=== PATIENT | female | born 1960 | race Caucasian/White ===

== ENCOUNTER 2024-08-05 15:17 | Outpatient (AMB) | payer MEDICARE, OTHER, SELFPAY ==
--- NOTE | 2024-08-05 15:36 | MHC.PC.OV ---
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: No Allergies No Known Allergies Allergy (Verified 08/05/24 15:47) Medication List - Last Reconciled 08/06/24 by Marce Harden MD amlodipine 5 mg PO DAILY atorvastatin 10 mg PO BEDTIME Zepbound (tirzepatide (weight loss)) 2.5 mg (0.5 mL) subcut QWEEK NS Tobacco use date assessed: 08/05/24 Fall risk assessment: No Falls in past year Last assessed Fall Risk: 08/05/24 Dental Screening Dental Screen Date: 08/05/24 Did you have a dental visit in the last 12 months?: Yes Did you have a dental problem in the last 6 months where you did not have access to dental care?: No Was dental information given to patient?: Patient has dentist HPI HPI Comments History of Present Illness Details 64 year old female with a past medical history of hypertension, hyperlipidemia, bilateral foot pain presenting to critical access hospital care. Transfer from [facility] CV: On amlodipine 5mg daily, atorvastatin. Denies chest pain Bilateral foot pain-long standing history of arch problems, foot pain. Follows with Dr Irene. In the past year or two has developed worsening knee pain and low back pain which she attributes to the chronic foot pain issues and recent weight gain. Says this is the highest she has ever weight. She continues to exercise and eats a decreased calorie low sugar diet. Despite this she has been unsuccesful with weight loss. Preventive Mammo: UTD Colon Cancer screening: Due Mar 2025 for repeat colonoscopy No longer routinely following with gynecology ROS see HPI PHYSICAL EXAM: GENERAL: Alert and oriented x 3. NAD EYES: EOMI. Anicteric. HENT: Moist mucous membranes. No scleral icterus. No cervical lymphadenopathy. LUNGS: Clear to auscultation bilaterally. CARDIOVASCULAR: Regular rate and rhythm. No murmur. No JVD. ABDOMEN: Soft, non-tender +bs EXTREMITIES: No edema. Non-tender. SKIN: No rashes or lesions. Warm. NEUROLOGIC: No focal neurological deficits. CN II-XII grossly intact PSYCHIATRIC: Cooperative. Appropriate mood and affect [facility] Surgical History No pertinent past surgical history Family History Father Heart disease Lung cancer Brother Diabetes Sister Breast cancer Other Lymphoma Social History Housing: House Alcohol intake: current Patient Tobacco Use Status: Former Tobacco user Cigarette Packs Per Day: 0.5 Years Smoked: 20 e-Cigarette/Vaping Use: Never Used Second Hand Smoke Exposure: No service: Yes Current occupational status: employed and retired Cognitive needs: No Hearing needs: No Vision needs: No Questionnaire PHQ-9 Over the last 2 weeks, how often have you been bothered by any of the following problems? 1. Little interest or pleasure in doing things: not at all 2. Feeling down, depressed, or hopeless: not at all 3. Trouble falling or staying asleep, or sleeping too much: not at all 4. Feeling tired or having little energy: not at all 5. Poor appetite or overeating: several days 6. Feeling bad about yourself - or that you are a failure or have let yourself or your family down: not at all 7. Trouble concentrating on things, such as reading the newspaper or watching television: several days 8. Moving or speaking so slowly that other people could have noticed. Or the opposite - being so fidgety or restless that you have been moving around a lot more than usual: not at all 9. Thoughts that you would be better off or of hurting yourself in some way: not at all Total score: 2 Depression Screening Interpretation: Negative Depression Screening Done: Yes 15064 - PHQ-9 Billing: Yes Source: Developed by Drs. Andrey Larson, Gege Shin, John Horn and colleagues, with an educational alysia from [employer]. Thrive Questionnaire I am a: Patient What is your living situation today?: I have a steady place to live Within the past 12 months, did the food you bought not last and you didn't have the money to get more?: Never true Within the past 12 months, did you worry whether your food would run out before you got money to buy more?: Never true Do you have trouble paying for medicines?: No Do you have trouble getting transportation to medical appointments?: No Do you have trouble paying your heating and electricity bill?: No Do you have trouble taking care of your child, family member or friend?: No Do you have trouble with day-to-day activities such as bathing, preparing meals, shopping, managing finances, etc.?: No Are you currently unemployed and looking for a job?: No Are you interested in more education?: No Please select the resources that you would like help with: Education Currently or been in a relationship where the following occur: No concerns reported THRIVE Score: 0 AUDIT C Alcohol Use Questionnaire (AUDIT-C) 1. How often do you have a drink containing alcohol?: Never Total Score: 0 CLARKE-7 AMB Questionnaire CLARKE-7 Feeling nervous, anxious, or on edge: 0 = Not at all Not being able to stop or control worryin = Not at all Worrying too much about different things: 0 = Not at all Trouble relaxin = Several days Being so restless that it is hard to sit still: 0 = Not at all Becoming easily annoyed or irritable: 0 = Not at all Feeling afraid as if something awful might happen: 0 = Not at all Total CLARKE-7 score (0-4 normal; 5-9 mild; 10-14 moderate; 15-21 severe): 1 Source: Developed by Drs. Andrey Larson, Gege Shin, John Horn and colleagues, with an educational alysia from [employer]. Physical exam (Primary Care) Vital Signs: Last Vital Signs Pulse 86 08/05/24 15:54 Resp 14 08/05/24 15:54 BP 98/66 08/05/24 15:54 Pulse Ox 97 08/05/24 15:54 Oxygen Delivery Method Room Air 08/05/24 15:54 BMI result Body Mass Index 30.1 Tobacco/Smoking Status: Tobacco use Status Tobacco use date assessed 08/05/24 08/05/24 15:54 Patient Tobacco Use Status Former Tobacco user 08/05/24 15:54 e-Cigarette/Vaping Use Never Used 04/07/25 15:54 PHQ-9: PHQ-9 Score PHQ-9: Total score 2 08/05/24 15:54 Depression Screening Interpretation: Negative Currently or been in a relationship where the following occur: No concerns reported Coding Level of Care Code New Pt Level 4 (33466) Complex EM visit Add On G2211 Diagnoses Encounter to establish care Z76.89 Primary hypertension I10 Hypertension type: primary hypertension Hyperlipidemia, unspecified hyperlipidemia type E78.5 Hyperlipidemia type: unspecified Obesity (BMI 30.0-34.9) E66.811 Additional Codes PHQ-9 - 53335 - PHQ-9 Billing: Yes ([id number]) Assessment & Plan Assessment & Plan (1) Encounter to establish care: Code(s): Z76.89 - Persons encountering health services in other specified circumstances Category: Medical (2) Hypertension: Code(s): I10 - Essential (primary) hypertension Category: Medical Qualifiers: Hypertension type: primary hypertension Qualified Code(s): I10 - Essential (primary) hypertension (3) Hyperlipidemia: Code(s): E78.5 - Hyperlipidemia, unspecified Category: Medical Qualifiers: Hyperlipidemia type: unspecified Qualified Code(s): E78.5 - Hyperlipidemia, unspecified (4) Obesity (BMI 30.0-34.9): Code(s): E66.811 - Obesity, class 1 Category: Medical Plan 64 y/o to establish care. Past medical surgical, social and family history reviewed HTN-adequately controlled Needs updated lipids Start zepbound 2/2 failed lifestyle changes, htn, hld and increased joint pain Orders: Orders MM screening mammo BI 08/05/24 Z12.31 - Encounter for screening mammogram for malignant neoplasm of breast Complete Blood Count Auto Diff Today E78.5 - Hyperlipidemia, unspecified, I10 - Essential (primary) hypertension, R63.5 - Abnormal weight gain, Z13.228 - Encounter for screening for other metabolic disorders Comprehensive Met. Panel Today E78.5 - Hyperlipidemia, unspecified, I10 - Essential (primary) hypertension, R63.5 - Abnormal weight gain, Z13.228 - Encounter for screening for other metabolic disorders Lipid Panel Today E78.5 - Hyperlipidemia, unspecified, I10 - Essential (primary) hypertension, R63.5 - Abnormal weight gain, Z13.228 - Encounter for screening for other metabolic disorders Hemoglobin A1c Today E78.5 - Hyperlipidemia, unspecified, I10 - Essential (primary) hypertension, R63.5 - Abnormal weight gain, Z13.228 - Encounter for screening for other metabolic disorders TSH reflex Free T4 Today E78.5 - Hyperlipidemia, unspecified, I10 - Essential (primary) hypertension, R63.5 - Abnormal weight gain, Z13.228 - Encounter for screening for other metabolic disorders Medications: New Zepbound (tirzepatide (weight loss)) for 4 weeks 2.5 mg (0.5 mL) subcut QWEEK 2 mL 0RF NS E66.811 - Obesity, class 1, E78.5 - Hyperlipidemia, unspecified, I10 - Essential (primary) hypertension
[2024-08-05 15:54] VITALS: BP 98/66; PULSE 86; RESP 14; O2SAT 97; BMI 30.1
== END 2024-08-05 16:27 | disposition home or self-care (01) ==
LOC: HO.HMCFM 15:18
PROVIDERS: PCP Internal Medicine; Visit Provider Internal Medicine
DX: I10 Essential (primary) hypertension (principal); E78.5 Hyperlipidemia, unspecified; E66.811 Obesity, class 1; Z68.30 Body mass index [BMI] 30.0-30.9, adult; Z76.89 Persons encountering health services in other specified circumstances

== ENCOUNTER → 2024-08-05 15:17 | Outpatient (BNVA) | payer MEDICARE, OTHER, SELFPAY | PROVIDERS: PCP Internal Medicine; Visit Provider Internal Medicine | DX: I10 Essential (primary) hypertension (principal); E78.5 Hyperlipidemia, unspecified; M79.672 Pain in left foot; M79.671 Pain in right foot; E66.811 Obesity, class 1; Z13.228 Encounter for screening for other metabolic disorders; Z68.30 Body mass index [BMI] 30.0-30.9, adult; Z76.89 Persons encountering health services in other specified circumstances | CPT/HCPCS: 96127; 99202 ==

== ENCOUNTER 2024-08-06 11:36 | Outpatient (REF) | payer MEDICARE, OTHER, SELFPAY ==
[2024-08-06 14:07] LABS: MANUAL DIFF FLAG NO
[2024-08-06 14:15] LABS: Basophils Percent Auto 0.6 % (0-2); Eosinophils Absolute Auto 0.1 X10*3/uL (0.0-0.4); Eosinophils Percent Auto 1.7 % (0-4); Hematocrit 42.4 % (37.0-47.0); Hemoglobin 14.4 g/dl (12.0-16.0); Imm Gran Abs Auto 0.01 X10*3/uL (0.00-0.03); Imm Gran Pct Auto 0.1 % (0.0-0.4); Lymphocytes Absolute Auto 3.4 X10*3/uL (1.2-4.9); Lymphocytes Percent Auto 48.1 % (20-40); Mean Corpuscular Hemoglobin 31.7 pg (27.0-33.0); Mean Corpuscular Volume 93.4 fL (80.0-98.0); Mean Platelet Volume 10.7 fL (9.4-12.3); Monocytes Absolute Auto 0.4 X10*3/uL (0.1-1.2); Monocytes Percent Auto 5.6 % (2-11); Neutrophils Absolute Auto 3.1 x10*3/uL (2.0-8.3); Neutrophils Percent Auto 43.9 % (45-73); Platelet Count 277 X10*3/uL (160-400); Red Blood Count 4.54 X10*6/uL (4.20-5.50); Red Cell Distribution Width 13.2 % (11.0-16.0); White Blood Count 7.1 X10*3/uL (4.8-10.8)
[2024-08-06 14:31] LABS: Estimated Average Glucose 108 mg/dL; Hemoglobin A1C 133.2051 umol/L; Hemoglobin A1c % 5.4 % (<6.0); Total Hemoglobin (HGBA1C) 3762.3384 umol/L
[2024-08-06 16:45] LABS: Alanine Aminotransferase 41 U/L (0-31); Albumin Level 4.1 g/dL (3.5-5.0); Alkaline Phosphatase 87 U/L (39-117); Anion Gap 8 (12-20); Aspartate Amino Transferase 33 U/L (5-31); Bilirubin Total 0.4 mg/dL (0.0-1.0); Blood Urea Nitrogen 14 mg/dL (9-16); Calcium 9.4 mg/dL (8.4-10.2); Carbon Dioxide 24 mmol/L (22-29); Chloride 113 mmol/L (96-108); Cholesterol 144 mg/dL (<200); Estimated Glomerular Filt Rate > 60; Glucose Random 94 mg/dL (60-115); HDL Cholesterol 57 mg/dL (>40); LDL Cholesterol Calculated 61 mg/dL (<100); Potassium 3.9 mmol/L (3.3-5.1); Sodium 141 mmol/L (135-145); Total Protein 7.1 g/dL (6.5-8.0); Triglycerides 134 mg/dL (<150)
[2024-08-06 17:04] LABS: TSH reflex Free T4 1.76 uIU/mL (0.32-4.0)
== END 2024-08-06 11:37 | disposition home or self-care (01) ==
LOC: HO.WFDLDS 11:36
PROVIDERS: Visit Provider Internal Medicine
DX: R63.5 Abnormal weight gain (principal); I10 Essential (primary) hypertension; E78.5 Hyperlipidemia, unspecified; Z13.228 Encounter for screening for other metabolic disorders; Z13.1 Encounter for screening for diabetes mellitus
CPT/HCPCS: 36415; 80053; 80061; 83036; 84443; 85025

== ENCOUNTER 2024-09-25 13:27 | Outpatient (REF) | payer OTHER, SELFPAY ==
[2024-09-25 17:34] LABS: MANUAL DIFF FLAG NO
[2024-09-25 18:05] LABS: Basophils Absolute Auto 0.1 X10*3/uL (0.0-0.2); Basophils Percent Auto 0.7 % (0-2); Eosinophils Absolute Auto 0.1 X10*3/uL (0.0-0.4); Eosinophils Percent Auto 1.6 % (0-4); Hematocrit 42.9 % (37.0-47.0); Hemoglobin 14.5 g/dl (12.0-16.0); Imm Gran Abs Auto 0.02 X10*3/uL (0.00-0.03); Imm Gran Pct Auto 0.3 % (0.0-0.4); Lymphocytes Absolute Auto 3.3 X10*3/uL (1.2-4.9); Lymphocytes Percent Auto 43.6 % (20-40); Mean Corpuscular HGB Conc 33.8 g/dl (31.0-35.0); Mean Corpuscular Hemoglobin 32.2 pg (27.0-33.0); Mean Corpuscular Volume 95.3 fL (80.0-98.0); Monocytes Absolute Auto 0.4 X10*3/uL (0.1-1.2); Monocytes Percent Auto 4.8 % (2-11); Neutrophils Absolute Auto 3.7 x10*3/uL (2.0-8.3); Platelet Count 272 X10*3/uL (160-400); White Blood Count 7.5 X10*3/uL (4.8-10.8)
== END 2024-09-25 13:28 | disposition home or self-care (01) ==
LOC: HO.WFDLDS 13:27
PROVIDERS: Visit Provider Internal Medicine
DX: D72.820 Lymphocytosis (symptomatic) (principal)
CPT/HCPCS: 85025

== ENCOUNTER 2025-02-17 15:09 | Outpatient (AMB) | payer OTHER, SELFPAY ==
--- NOTE | 2025-02-17 15:22 | MHC.PC.OV ---
Vital Signs 02/17/25 15:31 Height 5 ft 6.26 in Weight 189 lb 4 oz BMI 30.3 BP 130/68 Blood Pressure Location Rt brachial Position Sitting Respiration 18 Pulse 76 Pulse Source Pulse Oximeter Temp 97.8 F Temp Source Oral Pulse Oximetry (%) 98 Oxygen Delivery Method Room Air Intake Visit Reasons: bp Intake Note: blood pressure Direct Marketing Analyst Required: No Allergies No Known Allergies Allergy (Verified 02/17/25 15:24) Tobacco use date assessed: 02/17/25 Dental Screening Dental Screen Date: 02/17/25 Did you have a dental visit in the last 12 months?: No Did you have a dental problem in the last 6 months where you did not have access to dental care?: No Was dental information given to patient?: Patient has dentist HPI HPI Comments History of Present Illness Details 64 year old female with a past medical history of hypertension, hyperlipidemia, bilateral foot pain presenting for follow up CV: On amlodipine 5mg daily, atorvastatin. 130/68. Denies chest pain, exertional dyspnea Bilateral foot pain-long standing history of arch problems, foot pain. Follows with Dr Irene. In the past year or two has developed worsening knee pain and low back pain which she attributes to the chronic foot pain issues and recent weight gain. Obesity: Says this is the highest she has ever weight. She continues to exercise and eats a decreased calorie low sugar diet. Despite this she has been unsuccesful with weight loss. She could not tolerate phentermine. Insurance will not cover GLP. Preventive Mammo: UTD Colon Cancer screening: Due Mar 2025 for repeat colonoscopy No longer routinely following with gynecology ROS see HPI PHYSICAL EXAM: GENERAL: Alert and oriented x 3. NAD EYES: EOMI. Anicteric. HENT: Moist mucous membranes. No scleral icterus. No cervical lymphadenopathy. LUNGS: Clear to auscultation bilaterally. CARDIOVASCULAR: Regular rate and rhythm. No murmur. No JVD. ABDOMEN: Soft, non-tender +bs EXTREMITIES: No edema. Non-tender. SKIN: No rashes or lesions. Warm. NEUROLOGIC: No focal neurological deficits. CN II-XII grossly intact PSYCHIATRIC: Cooperative. Appropriate mood and affect PFSH Surgical History No pertinent past surgical history Family History Father Heart disease Lung cancer Brother Diabetes Sister Breast cancer Other Lymphoma Social History Housing: House Alcohol intake: current Patient Tobacco Use Status: Former Tobacco user Cigarette Packs Per Day: 0.5 Years Smoked: 20 e-Cigarette/Vaping Use: Never Used Second Hand Smoke Exposure: No service: Yes Current occupational status: employed and retired Cognitive needs: No Hearing needs: No Vision needs: No Questionnaire Thrive Questionnaire Date Thrive assessed: 08/05/24 I am a: Patient What is your living situation today?: I have a steady place to live Within the past 12 months, did the food you bought not last and you didn't have the money to get more?: Never true Within the past 12 months, did you worry whether your food would run out before you got money to buy more?: Never true Do you have trouble paying for medicines?: No Do you have trouble getting transportation to medical appointments?: No Do you have trouble paying your heating and electricity bill?: No Do you have trouble taking care of your child, family member or friend?: No Do you have trouble with day-to-day activities such as bathing, preparing meals, shopping, managing finances, etc.?: No Are you currently unemployed and looking for a job?: No Are you interested in more education?: No Please select the resources that you would like help with: Education Currently or been in a relationship where the following occur: No concerns reported THRIVE Score: 0 AUDIT C Alcohol Use Questionnaire (AUDIT-C) 2. How many drinks containing alcohol do you have on a typical day when you are drinking?: 1 or 2 3. How often do you have six or more drinks on one occasion?: Never Total Score: 0 CLARKE-7 AMB Questionnaire CLARKE-7 Date CLARKE - 7 assessed: 02/17/25 Source: Developed by Drs. Andrey Larson, Gege Shin, John Horn and colleagues, with an educational alysia from [employer] CLARKE-7 Assessment Billing CLARKE-7 Assessment Tool: CLARKE-7 Assessment 15226 Physical exam (Primary Care) Vital Signs: Last Vital Signs Temp 97.8 F 02/17/25 15:31 Pulse 76 02/17/25 15:31 Resp 18 02/17/25 15:31 BP 130/68 02/17/25 15:31 Pulse Ox 98 02/17/25 15:31 Oxygen Delivery Method Room Air 02/17/25 15:31 BMI result Body Mass Index 30.3 Tobacco/Smoking Status: Tobacco use Status Tobacco use date assessed 02/17/25 02/17/25 15:35 Patient Tobacco Use Status Former Tobacco user 02/17/25 15:35 e-Cigarette/Vaping Use Never Used 02/17/25 15:35 Thrive Assessment: Date of Thrive Assessment Date Thrive assessed 08/05/24 02/17/25 15:35 Currently or been in a relationship where the following occur: No concerns reported Coding Level of Care Code Est Pt Level 4 (23605) Complex EM visit Add On G2211 Diagnoses Primary hypertension I10 Hypertension type: primary hypertension Hyperlipidemia, unspecified hyperlipidemia type E78.5 Hyperlipidemia type: unspecified Obesity (BMI 30.0-34.9) E66.811 Additional Codes CLARKE-7 Assessment Billing - CLARKE-7 Assessment Tool: CLARKE-7 Assessment 00515 ([id number]) Assessment & Plan Assessment & Plan (1) Hypertension: Code(s): I10 - Essential (primary) hypertension Category: Medical Qualifiers: Hypertension type: primary hypertension Qualified Code(s): I10 - Essential (primary) hypertension (2) Hyperlipidemia: Code(s): E78.5 - Hyperlipidemia, unspecified Category: Medical Qualifiers: Hyperlipidemia type: unspecified Qualified Code(s): E78.5 - Hyperlipidemia, unspecified (3) Obesity (BMI 30.0-34.9): Code(s): E66.811 - Obesity, class 1 Category: Medical Plan 64 year old female presenting for follow up CV: BP stable Obesity: zepbound to chong direct Labs ordered Knee pain, foot pain-orthopedics referral placed Orders: Orders Complete Blood Count Auto Diff 6 Months E66.811 - Obesity, class 1, E78.5 - Hyperlipidemia, unspecified, G47.33 - Obstructive sleep apnea (adult) (pediatric), I10 - Essential (primary) hypertension, R35.89 - Other polyuria Lipid Panel 6 Months E66.811 - Obesity, class 1, E78.5 - Hyperlipidemia, unspecified, G47.33 - Obstructive sleep apnea (adult) (pediatric), I10 - Essential (primary) hypertension, R35.89 - Other polyuria Hemoglobin A1c 6 Months E66.811 - Obesity, class 1, E78.5 - Hyperlipidemia, unspecified, G47.33 - Obstructive sleep apnea (adult) (pediatric), I10 - Essential (primary) hypertension, R35.89 - Other polyuria Comprehensive Met. Panel 6 Months E66.811 - Obesity, class 1, E78.5 - Hyperlipidemia, unspecified, G47.33 - Obstructive sleep apnea (adult) (pediatric), I10 - Essential (primary) hypertension, R35.89 - Other polyuria TSH reflex Free T4 6 Months E66.811 - Obesity, class 1, E78.5 - Hyperlipidemia, unspecified, G47.33 - Obstructive sleep apnea (adult) (pediatric), I10 - Essential (primary) hypertension, R35.89 - Other polyuria Referrals Orthopedics Referral M25.561 - Pain in right knee, M79.671 - Pain in right foot Medications: New Zepbound (tirzepatide (weight loss)) 2.5 mg (0.5 mL) subcut QWEEK 2 mL 3RF 4 weeks NS Refilled amlodipine 5 mg PO DAILY 90 tabs 3RF atorvastatin 10 mg PO BEDTIME 90 tabs 3RF
[2025-02-17 15:31] VITALS: BP 130/68; PULSE 76; RESP 18; TEMP 36.6; O2SAT 98; BMI 30.3
== END 2025-02-17 15:59 | disposition home or self-care (01) ==
LOC: HO.HMCFM 15:11
PROVIDERS: PCP Internal Medicine; Visit Provider Internal Medicine
DX: I10 Essential (primary) hypertension (principal); E78.5 Hyperlipidemia, unspecified; E66.811 Obesity, class 1; Z68.30 Body mass index [BMI] 30.0-30.9, adult

== ENCOUNTER → 2025-02-17 15:09 | Outpatient (BNVA) | payer OTHER, SELFPAY | PROVIDERS: PCP Internal Medicine; Visit Provider Internal Medicine | DX: I10 Essential (primary) hypertension (principal); E78.5 Hyperlipidemia, unspecified; E66.811 Obesity, class 1; Z68.30 Body mass index [BMI] 30.0-30.9, adult; M79.671 Pain in right foot; M79.672 Pain in left foot; Z79.899 Other long term (current) drug therapy | CPT/HCPCS: 96127; 99212 ==

== ENCOUNTER 2025-02-27 11:31 | Outpatient (REF) | payer OTHER, SELFPAY ==
[2025-02-27 14:22] LABS: MANUAL DIFF FLAG NO
[2025-02-27 14:34] LABS: Hematocrit 44.0 % (37.0-47.0); Hemoglobin 14.3 g/dl (12.0-16.0); Imm Gran Abs Auto 0.01 X10*3/uL (0.00-0.03); Imm Gran Pct Auto 0.2 % (0.0-0.4); Lymphocytes Absolute Auto 2.8 X10*3/uL (1.2-4.9); Mean Corpuscular HGB Conc 32.5 g/dl (31.0-35.0); Mean Corpuscular Hemoglobin 31.4 pg (27.0-33.0); Mean Corpuscular Volume 96.5 fL (80.0-98.0); NRBC Abs Auto 0.000 X10*3/uL (0.0-0.012); NRBC Pct Auto 0.0 /100WBC (0.0-0.2); Platelet Count 273 X10*3/uL (160-400); Red Blood Count 4.56 X10*6/uL (4.20-5.50); White Blood Count 6.3 X10*3/uL (4.8-10.8)
[2025-02-27 14:51] LABS: Alanine Aminotransferase 33 U/L (0-31); Albumin Level 4.3 g/dL (3.5-5.0); Alkaline Phosphatase 86 U/L (39-117); Anion Gap 8 (12-20); Aspartate Amino Transferase 28 U/L (5-31); Blood Urea Nitrogen 16 mg/dL (9-16); Calcium 9.8 mg/dL (8.4-10.2); Carbon Dioxide 28 mmol/L (22-29); Chloride 111 mmol/L (96-108); Cholesterol 151 mg/dL (<200); Estimated Glomerular Filt Rate > 60; HDL Cholesterol 51 mg/dL (>40); Potassium 3.6 mmol/L (3.3-5.1); Sodium 143 mmol/L (135-145); Total Protein 7.3 g/dL (6.5-8.0); Triglycerides 137 mg/dL (<150)
== END 2025-02-27 11:32 | disposition home or self-care (01) ==
LOC: HO.WFDLDS 11:31
PROVIDERS: Visit Provider Internal Medicine
DX: I10 Essential (primary) hypertension (principal); E78.5 Hyperlipidemia, unspecified; E66.811 Obesity, class 1; G47.33 Obstructive sleep apnea (adult) (pediatric); R35.89 Other polyuria; Z13.1 Encounter for screening for diabetes mellitus
CPT/HCPCS: 36415; 80053; 80061; 83036; 84443; 85025

== ENCOUNTER 2025-04-01 | Outpatient (REF) | payer OTHER, SELFPAY ==
--- NOTE | ~2025-04-01 | XR_ITS ---
EXAMINATION: XR KNEE, RIGHT CLINICAL INFORMATION: M25.561 - Pain in right knee COMPARISON: None available. TECHNIQUE: AP view in upright position, lateral and sunrise views of the right knee. FINDINGS: Joint space narrowing involving medial lateral compartment with sclerosis along the articular surface of the tibial plateau. No suprapatellar bursa joint effusion. No acute fracture or dislocation. No lytic or blastic lesions. XR/XR knee RT 3V IMPRESSION: Bicompartmental osteoarthrosis/osteoarthritis. Electronically signed by: Terrence Lopez MD 04/01/2025 10:03 AM YEN [facility]ILLA
== END 2025-04-01 00:01 ==
LOC: HO.HOSX
PROVIDERS: Visit Provider Orthopaedic Surgery
DX: M25.561 Pain in right knee (principal); M79.671 Pain in right foot
CPT/HCPCS: 73562; 99202

== ENCOUNTER 2025-04-01 09:42 | Outpatient (AMB) | payer OTHER, SELFPAY ==
--- NOTE | 2025-04-01 10:03 | MHC.OFFVIS ---
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 Patient was referred by her PCP. At today's visit she states that for the past year she has had right knee pain, no falls or injury's. Patient would like to add that she felt that her gait was off balance and now that she found the correct foot wear her right knee pain is manageable. She denies any locking or giving way. She does have intermittent right foot pain. Patient noted that she would like to be referred to Podiatry. Patient would like to add that her right shoulder is having a discomfort at nighttime, and would like at home exercises. Allergies No Known Allergies Allergy (Verified 02/17/25 15:24) Medication List - Last Reconciled 04/01/25 by Rosendo Mckeon MD amlodipine 5 mg PO DAILY atorvastatin 10 mg PO BEDTIME Zepbound (tirzepatide (weight loss)) 2.5 mg (0.5 mL) subcut QWEEK 4 weeks [facility] Surgical History No pertinent past surgical history Family History Father Heart disease Lung cancer Brother Diabetes Sister Breast cancer Other Lymphoma Social History Housing: House Alcohol intake: current Patient Tobacco Use Status: Former Tobacco user Cigarette Packs Per Day: 0.5 Years Smoked: 20 e-Cigarette/Vaping Use: Never Used Second Hand Smoke Exposure: No service: Yes Current occupational status: employed and retired Cognitive needs: No Hearing needs: No Vision needs: No Physical Exam Extrem Other: Right knee examination shows a minimal effusion, mild crepitus with range of motion, tenderness along her medial joint line, positive Armani's test, no instability Results Reviewed Results Reviewed: X-rays of the patient's right knee taken today show mild to moderate diffuse joint space narrowing, no acute bony abnormalities Assessment & Plan Assessment & Plan (1) Right knee pain: Code(s): M25.561 - Pain in right knee Category: Medical (2) Right foot pain: Code(s): M79.671 - Pain in right foot Category: Medical Plan Ms. Henry presents with intermittent right knee pain due to early degenerative joint disease and possible medial meniscus tearing. I had a lengthy discussion with the patient regarding the treatment options. At this point the patient's symptoms are tolerable to her. She will continue with her home exercise program. I did refer her to the podiatry department for further evaluation of her right foot pain. She will follow up with me on an as-needed basis should her symptoms worsen in any way. Feel free to call me at any time should questions regarding her orthopedic management arise. Thank you very much for asking me to see this very friendly patient. I spent 21 minutes in reviewing the patient's records and imaging studies, seeing the patient and documenting in the medical record. Orders: Orders XR knee RT 3V Today M25.561 - Pain in right knee Referrals Podiatry Referral M79.671 - Pain in right foot Coding Level of Care Code New Pt Level 3 (08378) Complex visit Add On G2211 Diagnoses Right knee pain M25.561 Right foot pain M79.671
== END 2025-04-01 10:23 | disposition home or self-care (01) ==
LOC: HO.HOS 09:43
PROVIDERS: PCP Internal Medicine; Visit Provider Orthopaedic Surgery
DX: M25.561 Pain in right knee (principal); M79.671 Pain in right foot
CPT/HCPCS: 99203

== ENCOUNTER → 2025-04-01 09:53 | Outpatient (BNV) | payer OTHER, SELFPAY | PROVIDERS: Visit Provider Radiology Diagnostic Radiology | DX: M17.11 Unilateral primary osteoarthritis, right knee (principal) | CPT/HCPCS: 73562 ==